=== PATIENT | male | born 1965 | race American Indian/Alaskan Native ===

== ENCOUNTER 2021-06-06 12:40 | Outpatient (CLI) | payer OTHER ==
--- NOTE | 2021-06-06 15:28 | XRay Report ---
Cervical spine radiograph, 4 views. HISTORY: Neck pain, cervical radiculitis. COMPARISON: None FINDINGS: Cervical spinal alignment is preserved. Multilevel severe disc space height loss, most pronounced at C4-C5, C5-C6, and C6-C7. Moderate multilevel uncovertebral hypertrophy. No acute fracture. Prevertebr al soft tissues are within normal limits. Visualized lung apices are clear. IMPRESSION: Moderately advanced multilevel cervical spondylosis, most pronounced from C4 through C7. No acute abnormality. Signer Name: Van Denson MD Signed: 06/06/2021 3:23 PM Workstation Name: [id number]
== END 2021-06-06 12:41 | disposition home or self-care (01) ==
LOC: SPVIMAG 12:40
PROVIDERS: ATTEND Internal Medicine
DX: M47.22 Other spondylosis with radiculopathy, cervical region (principal)
CPT/HCPCS: 72040